=== PATIENT | male | born 1995 | race Caucasian/White ===

== ENCOUNTER → 2018-01-01 | Outpatient (REF) ==
--- NOTE | 2018-01-01 16:10 | RADIOLOGY IMAGING REPORT ---
FACILITY: [facility] - [place] PATIENT NAME: Koby Whitehead : 1995 MR: [id number] V: [id number] EXAM DATE: ORDERING PHYSICIAN: MABEL ZAPIEN TECHNOLOGIST: Location: [facility] [place] Patient: Koby Whitehead : 1995 Visit/Account:[id number] Date of Sevice: 01/01/2018 Exam type: ACUTE ABDOMEN SERIES 3 VIEW History: Abdominal discomfort x2 years, numbness all over body Comparison: None. Findings: Supine and upright views the abdomen demonstrate a moderate amount of fecal material throughout colon . The bowel gas pattern is otherwise nonspecific. There is no gross evidence of organomegaly or pat hologic intradermal calcification seen. PA view the chest reveals no evidence of pulmonary consolidation pleural effusions or pulmonary edema . The trachea is in midline. The cardiac silhouette is normal in size IMPRESSION: 1. A moderate amount of fecal material seen throughout the colon which may be related to constipatio n. No evidence of pulmonary consolidation Report Dictated By: Kacy Bautista MD at 01/01/2018 4:05 PM Report E-Signed By: Kacy Bautista MD at 01/01/2018 4:07 PM WSN:[email or web address]
== END ==
LOC: RAD 14:10
PROVIDERS: ATTEND Emergency Medicine
DX: R10.9 Unspecified abdominal pain (principal)
CPT/HCPCS: 74022